=== PATIENT | female | born 1960 | race African-American/Black ===

== ENCOUNTER 2021-02-20 19:52 | Inpatient (IN) | payer SELFPAY ==
[2021-02-20 21:22] LABS: #Basophils 0.1 thou/uL (0.0-0.2); #Lymphocytes 1.2 thou/uL (1.20-3.40); #Monocytes 0.3 thou/uL (0.11-0.59); #Neutrophils 2.9 thou/uL (1.40-6.50); %Basophils 1.5 % (0.0-1.0); %Eosinophils 0.8 % (0.0-10.0); %Lymphocytes 26.4 % (21.0-51.0); %Monocytes 7.5 % (0.0-10.0); %Neutrophils 63.8 % (42.0-75.0); Hemoglobin 11.4 g/dL (12.0-16.0); Mean Corpuscular HGB CONC 34.5 g/dL (32.0-36.0); Mean Corpuscular Hemoglobin 33.9 pg (27.0-31.0); Mean Corpuscular Volume 98.1 fL (78.0-98.0); Mean Platelet Volume 6.4 fL (7.4-10.4); Platelet Count 113 thou/uL (130-400); Platelet Morphology Comment Appears Decreased; RBC Distribution Width 13.2 % (11.5-14.5); Red Blood Cell (RBC) Count 3.36 mill/uL (4.20-5.40); White Blood Cell (WBC) Count 4.5 thou/uL (4.8-10.8)
[2021-02-20 21:23] LABS: ALT (SGPT) 68 U/L (8-55); AST (SGOT) 239 U/L (5-34); Albumin 3.7 g/dL (3.4-4.8); Alkaline Phosphatase 259 U/L (40-110); Anion Gap 15 mmol/L (10-20); BUN (Urea Nitrogen) 4 mg/dL (9.8-20.1); Bilirubin, Total 0.4 mg/dL (0.2-1.2); CK (CPK) 189 U/L (29-168); Calc. Creatinine Clearance 0 mL/min (70-130); Calcium 8.3 mg/dL (7.8-10.44); Carbon Dioxide 22 mmol/L (23-31); Chloride 97 mmol/L (98-107); Globulin 4.1 g/dL (2.4-3.5); Glucose 79 mg/dL (80-115); Protein, Total 7.8 g/dL (5.8-8.1); Sodium 130 mmol/L (136-145)
[2021-02-20 21:47] LABS: Acetaminophen Less than 6.0 mcg/mL (10.0-30.0); Alcohol 355 mg/dL (Less than 10); Salicylate Less than 8.0 mg/dL (15.0-30.0)
[2021-02-20 22:13] LABS: Bacteria/HPF None Seen HPF (None Seen); Bilirubin Negative (Negative); Blood, Urine Negative (Negative); Clarity Clear (Clear); Glucose, Urine (Dipstick) Normal (Negative); Ketone, Urine Negative (Negative); Leukocyte 250 Leu/uL (Negative); Nitrite Negative (Negative); Protein, Urine (Dipstick) Negative (Neg-Trace); RBC/HPF 0-3 HPF (0-3); Specific Gravity, Urine 1.004 (1.002-1.036); Squamous Epithelial 0-3 HPF (0-3); Urobilinogen Normal mg/dL (Less than 2); WBC/HPF 0-3 HPF (0-3)
[2021-02-20 22:23] LABS: Amphetamine Not Detected (NotDetected); Barbiturates Screen Not Detected (NotDetected); Benzodiazepine Screen Not Detected (NotDetected); Cocaine Metabolite Screen Not Detected (NotDetected); Medtox Control Line Valid? VALID (VALID); Medtox Reader # READER 4; Methadone Not Detected (NotDetected); Methamphetamine Not Detected (NotDetected); Opiate Screen Not Detected (NotDetected); Oxycodone Screen Not Detected (NotDetected); Phencyclidine (PCP) Not Detected (NotDetected); THC/Cannabinoid Screen Not Detected (NotDetected); Tricyclic Screen Not Detected (NotDetected)
[2021-02-21] MEDS ORDERED: Lorazepam 2 MG/ML VIAL ONE (00:12)
[2021-02-21 00:51] LABS: Troponin I Less than 0.010 ng/mL (< 0.028)
[2021-02-21] MEDS ORDERED: Sodium Chloride 0.9% 1,000 ML IV SCH (01:30)
[2021-02-21] MEDS ORDERED: Ondansetron ODT 4 MG TAB SL PRN (01:30)
[2021-02-21] MEDS ORDERED: Ondansetron PF 4 MG/2 ML Vial IVP PRN (01:30)
[2021-02-21 01:56] VITALS: BMI 17.7
[2021-02-21] MEDS ORDERED: Acetaminophen 325 MG TAB PO PRN (04:36)
[2021-02-21] MEDS ORDERED: Lorazepam 2 MG/ML VIAL IM PRN (09:05)
[2021-02-21] MEDS ORDERED: Ondansetron ODT 4 MG TAB PO PRN (09:12)
[2021-02-21] MEDS ORDERED: Amlodipine 10 MG TAB PO SCH (10:00)
[2021-02-21] MEDS: Thiamine HCl 200 MG/2 ML VIAL IM SCH (10:10)
[2021-02-21] MEDS: Enoxaparin Sodium 40 MG/0.4 ML SYRINGE SC SCH (10:10)
[2021-02-21 10:25] LABS: Hemoglobin 12.5 g/dL (12.0-16.0); Mean Corpuscular HGB CONC 32.6 g/dL (32.0-36.0); Mean Corpuscular Hemoglobin 32.7 pg (27.0-31.0); Mean Platelet Volume 6.3 fL (7.4-10.4); Platelet Count 132 thou/uL (130-400); RBC Distribution Width 13.4 % (11.5-14.5); Red Blood Cell (RBC) Count 3.82 mill/uL (4.20-5.40)
[2021-02-21 10:32] LABS: Hemoglobin A1c 4.7 % (4.0-6.0)
[2021-02-21] MEDS ORDERED: Iopamidol-370 76% 500 ML 1 ML ONE (10:37)
[2021-02-21 10:46] LABS: ALT (SGPT) 73 U/L (8-55); AST (SGOT) 224 U/L (5-34); Alkaline Phosphatase 247 U/L (40-110); Anion Gap 21 mmol/L (10-20); BUN (Urea Nitrogen) Less than 4 mg/dL (9.8-20.1); Bilirubin, Total 0.6 mg/dL (0.2-1.2); Calc. Creatinine Clearance 63 mL/min (70-130); Calcium 8.9 mg/dL (7.8-10.44); Carbon Dioxide 19 mmol/L (23-31); Cardiac Risk 2.1 (Less than 4.5); Chloride 101 mmol/L (98-107); Cholesterol 242 mg/dl (< 200 Desired); Globulin 4.7 g/dL (2.4-3.5); Glucose 63 mg/dL (80-115); HDL Cholesterol 118 mg/dL (>60 Neg Risk); LDL Cholesterol, Calculated 113 mg/dL; Potassium 3.9 mmol/L (3.5-5.1); Protein, Total 8.7 g/dL (5.8-8.1); Sodium 137 mmol/L (136-145); Triglycerides 53 mg/dL (Less than 150)
[2021-02-21 11:00] LABS: SARS-CoV-2 PCR by NAA Not Detected (NotDetected)
[2021-02-21] MEDS ORDERED: Lorazepam 1 MG TAB PO SCH (12:00)
[2021-02-21] MEDS: Multivitamins, Adult 10 ML, Folic Acid 1 MG, Thiamine HCl 100 MG in Dextrose 5 %-0.45 %... IV SCH (12:12)
[2021-02-21] MEDS ORDERED: Metoprolol Tartrate 25 MG TAB PO PRN (16:18)
[2021-02-21] MEDS: Lorazepam 1 MG TAB PO PRN (23:26)
[2021-02-22 05:17] LABS: #Lymphocytes 0.8 thou/uL (1.20-3.40); #Monocytes 0.3 thou/uL (0.11-0.59); %Basophils 0.6 % (0.0-1.0); %Eosinophils 0.5 % (0.0-10.0); %Monocytes 6.4 % (0.0-10.0); %Neutrophils 76.4 % (42.0-75.0); Hemoglobin 11.4 g/dL (12.0-16.0); Mean Corpuscular HGB CONC 33.1 g/dL (32.0-36.0); Mean Corpuscular Hemoglobin 32.5 pg (27.0-31.0); Mean Corpuscular Volume 98.2 fL (78.0-98.0); Mean Platelet Volume 6.5 fL (7.4-10.4); Platelet Count 94 thou/uL (130-400); RBC Distribution Width 13.1 % (11.5-14.5); White Blood Cell (WBC) Count 5.2 thou/uL (4.8-10.8)
[2021-02-22 05:32] LABS: Anion Gap 12 mmol/L (10-20); BUN (Urea Nitrogen) Less than 4 mg/dL (9.8-20.1); Calc. Creatinine Clearance 68 mL/min (70-130); Calcium 9.3 mg/dL (7.8-10.44); Carbon Dioxide 27 mmol/L (23-31); Chloride 92 mmol/L (98-107); Glucose 114 mg/dL (80-115); Potassium 3.2 mmol/L (3.5-5.1); Sodium 128 mmol/L (136-145)
[2021-02-22] MEDS: Lorazepam 2 MG/ML VIAL SLOW IVP PRN ×2 (05:52→14:10)
[2021-02-22] MEDS: Potassium Chloride 20 MEQ TAB PO SCH ×2 (09:36→12:57)
[2021-02-22] MEDS: Folic Acid 1 MG TAB PO SCH (09:36)
[2021-02-22] MEDS: Multivitamin W/ Minerals 1 TAB PO SCH (09:36)
[2021-02-22] MEDS: Enoxaparin Sodium 40 MG/0.4 ML SYRINGE SC SCH (09:36)
[2021-02-22] MEDS: Thiamine HCl 200 MG/2 ML VIAL IM SCH (09:41)
[2021-02-22] MEDS: Multivitamins, Adult 10 ML, Folic Acid 1 MG, Thiamine HCl 100 MG in Dextrose 5 %-0.45 %... IV SCH (12:24)
[2021-02-23] MEDS ORDERED: Multivit, Therapeutic 1 TAB PO SCH (09:00)
[2021-02-23] MEDS: Folic Acid 1 MG TAB PO SCH (09:25)
[2021-02-23] MEDS: Multivitamin W/ Minerals 1 TAB PO SCH (09:25)
[2021-02-23] MEDS: Enoxaparin Sodium 40 MG/0.4 ML SYRINGE SC SCH (09:31)
[2021-02-23 11:56] VITALS: BP 91/68; TEMP 97.9
[2021-02-24] MEDS ORDERED: Lorazepam 0.5 MG TAB PO SCH (06:00)
[2021-02-24] MEDS ORDERED: Lorazepam 1 MG TAB PO PRN (06:00)
[2021-02-25] MEDS ORDERED: Lorazepam 0.5 MG TAB PO PRN (06:00)
[2021-02-25] MEDS ORDERED: Thiamine 100 MG TAB PO SCH (09:00)
== END 2021-02-23 12:02 | disposition home or self-care (01) | DRG 896 ==
LOC: ERS 19:52 → 2SE 23:55 → OBSVTOIN 02-21 16:18 → T4-A 02-22 21:39
PROVIDERS: ADMIT Student in an Organized Health Care Education/Training Program; ATTEND Internal Medicine
PROC: HZ2ZZZZ Detoxification Services for Substance Abuse Treatment (ICD-10-PCS; principal; 2021-02-21)
DX: F10.121 Alcohol abuse with intoxication delirium (principal); G92 Toxic encephalopathy; Y90.8 Blood alcohol level of 240 mg/100 ml or more; I10 Essential (primary) hypertension; E78.5 Hyperlipidemia, unspecified; F10.130 Alcohol abuse with withdrawal, uncomplicated; Z20.822 Contact with and (suspected) exposure to COVID-19; D69.59 Other secondary thrombocytopenia; K70.0 Alcoholic fatty liver; Z91.81 History of falling; Z71.41 Alcohol abuse counseling and surveillance of alcoholic
CPT/HCPCS: 36415; 70450; 71045; 72125; 74177; 76705; 80048; 80053; 80061; 80306; 80307; 81003; 81015; 82550; 83036; 83735; 84443; 84484; 85025; 85027; 93005; 93010; 93306; 96372; 96374; 96375; G0378; J1650; J2060; J2405; J3411; J7042; Q9967; U0003; U0005

== ENCOUNTER 2021-05-05 13:31 | Emergency (ER) | payer SELFPAY ==
[2021-05-05 14:27] LABS: #Eosinphils 0.1 thou/uL (0.0-0.7); #Lymphocytes 1.1 thou/uL (1.20-3.40); #Monocytes 0.5 thou/uL (0.11-0.59); #Neutrophils 3.3 thou/uL (1.40-6.50); %Basophils 0.6 % (0.0-1.0); %Lymphocytes 22.7 % (21.0-51.0); %Neutrophils 65.7 % (42.0-75.0); Hemoglobin 9.4 g/dL (12.0-16.0); Mean Corpuscular HGB CONC 33.9 g/dL (32.0-36.0); Mean Corpuscular Hemoglobin 31.5 pg (27.0-31.0); Mean Corpuscular Volume 92.9 fL (78.0-98.0); Mean Platelet Volume 6.8 fL (7.4-10.4); Platelet Count 256 thou/uL (130-400); RBC Distribution Width 13.5 % (11.5-14.5); Red Blood Cell (RBC) Count 2.98 mill/uL (4.20-5.40)
[2021-05-05 14:49] LABS: Bilirubin Negative (Negative); Blood, Urine Negative (Negative); Clarity Clear (Clear); Glucose, Urine (Dipstick) Normal (Negative); Ketone, Urine Negative (Negative); Leukocyte Negative Leu/uL (Negative); Nitrite Negative (Negative); Protein, Urine (Dipstick) Negative (Neg-Trace); Specific Gravity, Urine 1.013 (1.002-1.036); Urobilinogen Normal mg/dL (Less than 2); pH, Urine 5.5 (5.0-9.0)
[2021-05-05 15:10] LABS: ALT (SGPT) 50 U/L (8-55); AST (SGOT) 83 U/L (5-34); Albumin 2.9 g/dL (3.4-4.8); Alkaline Phosphatase 319 U/L (40-110); Anion Gap 15 mmol/L (10-20); BUN (Urea Nitrogen) 11 mg/dL (9.8-20.1); Bilirubin, Total 0.6 mg/dL (0.2-1.2); Calc. Creatinine Clearance 0 mL/min (70-130); Calcium 8.9 mg/dL (7.8-10.44); Carbon Dioxide 30 mmol/L (23-31); Chloride 86 mmol/L (98-107); Globulin 3.9 g/dL (2.4-3.5); Glucose 117 mg/dL (80-115); Potassium 4.1 mmol/L (3.5-5.1); Protein, Total 6.8 g/dL (5.8-8.1); Sodium 127 mmol/L (136-145)
== END 2021-05-05 15:55 | disposition left against medical advice (07) ==
LOC: ERS 13:31
DX: M53.3 Sacrococcygeal disorders, not elsewhere classified (principal); E87.1 Hypo-osmolality and hyponatremia; D64.9 Anemia, unspecified; I10 Essential (primary) hypertension; W18.30XA Fall on same level, unspecified, initial encounter
CPT/HCPCS: 51701; 72220; 80053; 81003; 85025

== ENCOUNTER 2021-05-21 09:48 | Inpatient (IN) | payer SELFPAY ==
[2021-05-21] MEDS ORDERED: Pantoprazole 80 MG in Sodium Chloride 0.9% 100 ML IVPB SCH (11:22)
[2021-05-21] MEDS ORDERED: Bisacodyl 5 MG TAB PO PRN (11:23)
[2021-05-21] MEDS ORDERED: Ondansetron PF 4 MG/2 ML Vial IVP PRN (11:23)
[2021-05-21] MEDS ORDERED: Octreotide Acetate 1,250 MCG in Sodium Chloride 0.9% 250 ML 250 ML IVPB SCH (11:45)
[2021-05-21] MEDS: Multivitamins, Adult 10 ML, Folic Acid 1 MG, Thiamine HCl 100 MG in Dextrose 5 %-0.45 %... IV SCH (14:44)
[2021-05-21] MEDS: Sodium Chloride 0.9% 1,000 ML IV SCH (14:44)
[2021-05-21] MEDS: Bisacodyl 10 MG SUPP PR SCH (18:25)
[2021-05-22] MEDS: Fleet Enema 133 ML BOT PR SCH ×6 (00:05→22:41)
[2021-05-22] MEDS: Bisacodyl 10 MG SUPP PR SCH ×6 (00:08→22:40)
[2021-05-22] MEDS: Sodium Chloride 0.9% 1,000 ML IV SCH ×2 (03:45→17:23)
[2021-05-22 08:31] LABS: #Eosinphils 0.1 thou/uL (0.0-0.7); #Monocytes 0.3 thou/uL (0.11-0.59); #Neutrophils 3.2 thou/uL (1.40-6.50); %Basophils 0.4 % (0.0-1.0); %Eosinophils 1.9 % (0.0-10.0); %Lymphocytes 21.7 % (21.0-51.0); %Monocytes 6.7 % (0.0-10.0); %Neutrophils 69.3 % (42.0-75.0); Hemoglobin 9.5 g/dL (12.0-16.0); Mean Corpuscular HGB CONC 31.3 g/dL (32.0-36.0); Mean Corpuscular Hemoglobin 30.3 pg (27.0-31.0); Mean Corpuscular Volume 96.6 fL (78.0-98.0); Mean Platelet Volume 5.7 fL (7.4-10.4); Platelet Count 331 thou/uL (130-400); RBC Distribution Width 14.8 % (11.5-14.5); Red Blood Cell (RBC) Count 3.13 mill/uL (4.20-5.40); White Blood Cell (WBC) Count 4.7 thou/uL (4.8-10.8)
[2021-05-22 08:57] LABS: Anion Gap 10 mmol/L (10-20); BUN (Urea Nitrogen) Less than 4 mg/dL (9.8-20.1); Calc. Creatinine Clearance 0 mL/min (70-130); Calcium 8.6 mg/dL (7.8-10.44); Carbon Dioxide 23 mmol/L (23-31); Chloride 107 mmol/L (98-107); Glucose 106 mg/dL (80-115); Potassium 3.3 mmol/L (3.5-5.1); Sodium 137 mmol/L (136-145)
[2021-05-22] MEDS: Pantoprazole 40 MG VIAL IVP SCH (09:46)
[2021-05-22] MEDS: Polyethylene Glycol 3350 17 GM Packet PO SCH (09:47)
[2021-05-22] MEDS ORDERED: Prevnar 13-Val Conj/PF 0.5 ML SYRINGE IM ONE (11:30)
[2021-05-22 14:21] VITALS: BMI 17.7
[2021-05-22] MEDS: Multivitamins, Adult 10 ML, Folic Acid 1 MG, Thiamine HCl 100 MG in Dextrose 5 %-0.45 %... IV SCH (15:56)
[2021-05-23] MEDS: Bisacodyl 10 MG SUPP PR SCH ×2 (05:13→11:12)
[2021-05-23] MEDS: Fleet Enema 133 ML BOT PR SCH ×2 (05:14→11:12)
[2021-05-23] MEDS: Sodium Chloride 0.9% 1,000 ML IV SCH (06:54)
[2021-05-23 07:01] LABS: Hemoglobin 8.2 g/dL (12.0-16.0); Platelet Count 308 thou/uL (130-400)
[2021-05-23 07:14] LABS: Anion Gap 8 mmol/L (10-20); BUN (Urea Nitrogen) Less than 4 mg/dL (9.8-20.1); Calc. Creatinine Clearance 84 mL/min (70-130); Calcium 8.1 mg/dL (7.8-10.44); Carbon Dioxide 26 mmol/L (23-31); Chloride 105 mmol/L (98-107); Glucose 87 mg/dL (80-115); Potassium 3.7 mmol/L (3.5-5.1); Sodium 135 mmol/L (136-145)
[2021-05-23] MEDS ORDERED: Folic Acid 1 MG TAB PO SCH (09:00)
[2021-05-23] MEDS ORDERED: Thiamine 100 MG TAB PO SCH (09:00)
[2021-05-23] MEDS ORDERED: Multivit, Therapeutic 1 TAB PO SCH (09:00)
[2021-05-23] MEDS: Polyethylene Glycol 3350 17 GM Packet PO SCH (09:13)
[2021-05-23] MEDS: Pantoprazole 40 MG VIAL IVP SCH (09:14)
[2021-05-23] MEDS: Multivitamins, Adult 10 ML, Folic Acid 1 MG, Thiamine HCl 100 MG in Dextrose 5 %-0.45 %... IV SCH (11:12)
[2021-05-23 14:27] VITALS: BP 124/75; TEMP 98.3
== END 2021-05-23 11:36 | disposition home or self-care (01) | DRG 389 ==
LOC: SURG A 09:48
PROVIDERS: ADMIT Internal Medicine; ATTEND Family Medicine
DX: K56.41 Fecal impaction (principal); S32.10XA Unspecified fracture of sacrum, initial encounter for closed fracture; K64.4 Residual hemorrhoidal skin tags; Z20.822 Contact with and (suspected) exposure to COVID-19; I10 Essential (primary) hypertension; F10.10 Alcohol abuse, uncomplicated; E87.6 Hypokalemia; D64.9 Anemia, unspecified; W19.XXXA Unspecified fall, initial encounter; Z91.14 Patient's other noncompliance with medication regimen; Z79.899 Other long term (current) drug therapy
CPT/HCPCS: 36415; 70450; 80048; 85014; 85018; 85025; 85049; C9113; J2354; J3411; J3490; J7042; J7050